=== PATIENT | female | born 1960 | race Caucasian/White ===

== ENCOUNTER 2017-10-20 01:51 | Emergency (ER) | payer OTHER ==
[~2017-10-20] VITALS: Ht 162.6 cm; Wt 75.0 kg
[~2017-10-20 01:51] MED LIST: OXYC-360 PO; PREMPRO PO; STOO100C PO; SYNT88TA PO; TAB-TAB PO
[2017-10-20 01:57] VITALS: BP 113/56; PULSE 79; RESP 18; TEMP 98.2; O2SAT 97
[2017-10-20 01:59] VITALS: BP 116/57; PULSE 79; RESP 18; O2SAT 100
[2017-10-20] MEDS ORDERED: LEVO75TA3 PO (03:03)
--- NOTE | 2017-10-20 03:26 | PD ---
HPI Chief Complaint: Abdominal Pain Time Seen by Provider: 03:12 Travel History International Travel<30 days: No Contact w/Intl Traveler<30days: No Traveled to known affect area: No History of Present Illness HPI 57yo F with no significant PMH presents to the ED with c/o vomiting and diarrhea that started around 5pm today. States there is no blood in vomit or stool. Denies any fever, chest pain, sob, abdominal pain, focal weakness or numbness. Pt said she was having vomiting and diarrhea at the same time and was lying on the floor because she was feeling weak and passed out for a second so decide to come. Denies any head trauma and said she was already lying down. Denies any headache. PFSH Past Medical History Respiratory: No Thyroid Disease: Yes Tetanus Vaccination: < 5 Years Influenza Vaccination: Yes : 3 Para: 2 Miscarriage: 1 Ovarian Cysts: Yes Past Surgical History Abdominal Surgery: Yes (APPENDECTOMY ) Gynecologic Surgery: Yes (C SECTION ) Other Surgery: Yes Social History Alcohol Use: Yes (OCC) Tobacco Use: No Substance Use: No Allergies-Medications (Allergen,Severity, Reaction): Coded Allergies: No Known Allergies (Verified , 09/01/09) Reported Meds & Prescriptions Reported Meds & Active Scripts Active Zofran Odt (Ondansetron Odt) 4 Mg Tab 4 Mg SL Q12HR PRN Reported Levothyroxine (Levothyroxine Sodium) 75 Mcg Tab 75 Mcg PO DAILY Review of Systems Except as stated in HPI: all other systems reviewed are Neg Physical Exam Narrative GENERAL: 57yo F in mild distress. SKIN: Focused skin assessment warm/dry. HEAD: Atraumatic. Normocephalic. EYES: Pupils equal and round. No scleral icterus. No injection or drainage. ENT: No nasal bleeding or discharge. Mucous membranes pink and moist. NECK: Trachea midline. No JVD. CARDIOVASCULAR: Regular rate and rhythm. No murmur appreciated. RESPIRATORY: No accessory muscle use. Clear to auscultation. Breath sounds equal bilaterally. GASTROINTESTINAL: Abdomen soft, non-tender, nondistended. No rebound tenderness or guarding. MUSCULOSKELETAL: No obvious deformities. No clubbing. No cyanosis. No edema. NEUROLOGICAL: Awake and alert. No obvious cranial nerve deficits. Motor grossly within normal limits. Normal speech. PSYCHIATRIC: Appropriate mood and affect; insight and judgment normal. Data Data Last Documented VS Vital Signs Date Time Temp Pulse Resp B/P (MAP) Pulse Ox O2 Delivery O2 Flow Rate FiO2 10/20/17 05:24 100 10/20/17 05:24 98.1 67 18 Orders Orders Complete Blood Count With Diff (10/20/17 03:04) Comprehensive Metabolic Panel (10/20/17 03:04) Iv Access Insert/Monitor (10/20/17 03:04) Ecg Monitoring (10/20/17 03:04) Oximetry (10/20/17 03:04) Lipase (10/20/17 03:21) Electrocardiogram (10/20/17 ) Troponin I (10/20/17 03:21) Sodium Chlor 0.9% 1000 Ml Inj (Ns 1000 M (10/20/17 03:30) Ed Discharge Order (10/20/17 04:55) Labs Laboratory Tests Test 10/20/17 03:07 White Blood Count 8.4 TH/MM3 Red Blood Count 4.78 MIL/MM3 Hemoglobin 13.8 GM/DL Hematocrit 40.7 % Mean Corpuscular Volume 85.2 FL Mean Corpuscular Hemoglobin 29.0 PG Mean Corpuscular Hemoglobin Concent 34.0 % Red Cell Distribution Width 13.7 % Platelet Count 186 TH/MM3 Mean Platelet Volume 7.7 FL Neutrophils (%) (Auto) 90.4 % Lymphocytes (%) (Auto) 4.2 % Monocytes (%) (Auto) 4.8 % Eosinophils (%) (Auto) 0.4 % Basophils (%) (Auto) 0.2 % Neutrophils # (Auto) 7.6 TH/MM3 Lymphocytes # (Auto) 0.4 TH/MM3 Monocytes # (Auto) 0.4 TH/MM3 Eosinophils # (Auto) 0.0 TH/MM3 Basophils # (Auto) 0.0 TH/MM3 CBC Comment DIFF FINAL Differential Comment Blood Urea Nitrogen 28 MG/DL Creatinine 0.87 MG/DL Random Glucose 123 MG/DL Total Protein 7.2 GM/DL Albumin 3.8 GM/DL Calcium Level 8.0 MG/DL Alkaline Phosphatase 54 U/L Aspartate Amino Transf (AST/SGOT) 24 U/L Alanine Aminotransferase (ALT/SGPT) 29 U/L Total Bilirubin 0.5 MG/DL Sodium Level 143 MEQ/L Potassium Level 3.9 MEQ/L Chloride Level 112 MEQ/L Carbon Dioxide Level 24.1 MEQ/L Anion Gap 7 MEQ/L Estimat Glomerular Filtration Rate 67 ML/MIN Troponin I LESS THAN 0.02 NG/ML Lipase 91 U/L [facility] Medical Decision Making Medical Screen Exam Complete: Yes Emergency Medical Condition: Yes Interpretation(s) EKG: NSR 75bpm. Normal axis. TWI V2. QTc 445ms. Differential Diagnosis Dehydration vs. electrolyte abnormality vs. arrhythmia Narrative Course 57yo F with c/o vomiting and diarrhea today. No abdominal pain on exam. Labs reviewed, no leukocytosis. H/H normal. Troponin negative. Lipase normal. BUN /creatinine ratio elevated at 28/0.87. Pt given NS IVF and feels much better. She was given zofran by EVAC. Pt reevaluated and feels much better. Pt wants to go home and tolerating PO in the ED. Return precautions given. Diagnosis Primary Impression: Dehydration Patient Instructions: General Instructions Departure Forms: Tests/Procedures Additional Instructions: Please follow up with your primary care physician in 3-7 days. Return to the ED if symptoms worsen. Med/Other Pt SpecificInfo: Prescription(s) given Scripts Ondansetron Odt (Zofran Odt) 4 Mg Tab 4 MG SL Q12HR Y for Nausea/Vomiting, #6 TAB 0 Refills Prov: Betty Arnold DO 10/20/17 Disposition: 01 DISCHARGE HOME Condition: Stable Betty Arnold DO Oct 20, 2017 03:26
[2017-10-20] MEDS ORDERED: SODIUM CHLOR 0.9% 1000 ML INJ 1,000 ML IV ONE (03:30)
[2017-10-20 03:39] LABS: AUTOMATED NEUTROPHIL # 7.6 TH/MM3 (1.8-7.7); BASOPHIL % 0.2 % (0.0-2.0); EOSINOPHIL % 0.4 % (0.0-4.0); HEMATOCRIT 40.7 % (35.0-46.0); HEMOGLOBIN 13.8 GM/DL (11.6-15.3); LYMPH % 4.2 % (9.0-44.0); LYMPHOCYTE # 0.4 TH/MM3 (1.0-4.8); MEAN CELL VOLUME 85.2 FL (80.0-100.0); MEAN PLATELET VOLUME 7.7 FL (7.0-11.0); MONO % 4.8 % (0.0-8.0); MONOCYTE # 0.4 TH/MM3 (0-0.9); NEUT % 90.4 % (16.0-70.0); PLATELET COUNT 186 TH/MM3 (150-450); RED BLOOD COUNT 4.78 MIL/MM3 (4.00-5.30); RED CELL DISTRIBUTION WIDTH 13.7 % (11.6-17.2); WHITE BLOOD COUNT 8.4 TH/MM3 (4.0-11.0)
[2017-10-20 04:05] LABS: ALBUMIN 3.8 GM/DL (3.4-5.0); ALT (GPT) 29 U/L (10-53); AST (GOT) 24 U/L (15-37); BICARBONATE 24.1 MEQ/L (21.0-32.0); BLOOD UREA NITROGEN 28 MG/DL (7-18); CHLORIDE 112 MEQ/L (98-107); GLUCOSE,RANDOM 123 MG/DL (74-106); SODIUM (NA) 143 MEQ/L (136-145)
[2017-10-20 04:07] LABS: ALKALINE PHOSPHATASE 54 U/L (45-117); CREATININE 0.87 MG/DL (0.50-1.00); GLOMERULAR FILTRATION RATE 67 ML/MIN (>89); TOTAL BILIRUBIN ADULT 0.5 MG/DL (0.2-1.0); TOTAL PROTEIN 7.2 GM/DL (6.4-8.2)
[2017-10-20 04:21] LABS: TROPONIN I LESS THAN 0.02 NG/ML (0.02-0.05)
[2017-10-20] MEDS ORDERED: ZOFR4TAB3 SL (04:55)
[2017-10-20 05:24] VITALS: BP 112/56; TEMP 98.1; O2SAT 100
--- NOTE | 2017-10-20 10:04 | EKG ---
Date Performed: 10/20/2017 Time Performed: 03:51:21 PTAGE: 57 years EKG: Sinus rhythm POSSIBLE LEFT ATRIAL ENLARGEMENT INCOMPLETE RIGHT BUNDLE BRANCH BLOCK BORDERLINE ECG No significant change from prior electrocardiogram. PREVIOUS TRACING : 08/02/2009 15.35 DOCTOR: Wade Melo Interpretating Date/Time 10/20/2017 10:02:33
== END 2017-10-20 05:26 | disposition home or self-care (01) ==
LOC: NEPC 01:51
DX: E86.0 Dehydration (principal); E07.9 Disorder of thyroid, unspecified; I45.10 Unspecified right bundle-branch block
CPT/HCPCS: 80053; 83690; 84484; 85025; 93005; 99284; J7030